=== PATIENT | female | born 1955 | race Caucasian/White ===

== ENCOUNTER 2021-07-24 19:21 | Emergency (ER) | payer MEDICAID ==
[~2021-07-24] VITALS: Ht 160 cm; Wt 114.8 kg
[2021-07-24 20:25] VITALS: BP_SYST 144
--- NOTE | 2021-07-24 21:30 | NUR ---
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
== END 2021-07-24 21:30 | disposition left against medical advice (07) ==
LOC: SED 19:21
DX: S61.211A Laceration without foreign body of left index finger without damage to nail, initial encounter (principal); W26.0XXA Contact with knife, initial encounter; Y93.89 Activity, other specified; Y92.89 Other specified places as the place of occurrence of the external cause; Y99.8 Other external cause status; Z53.21 Procedure and treatment not carried out due to patient leaving prior to being seen by health care provider